=== PATIENT | female | born 1995 | race Two or more races ===

== ENCOUNTER 2019-03-25 13:46 | Emergency (ER) | payer OTHER ==
[~2019-03-25] VITALS: Ht 142.2 cm; Wt 54.4 kg
[2019-03-25 14:24] LABS: BASOPHILS % (AUTO) 0.3 % (0.0-2.0); EOSINOPHILS # (AUTO) 0.1 K/uL (0.0-0.7); EOSINOPHILS % (AUTO) 0.8 % (0.0-7.0); HEMATOCRIT 37.3 % (31.2-41.9); HEMOGLOBIN 12.1 g/dL (10.9-14.3); LYMPHOCYTES % (AUTO) 39.1 % (20.5-51.5); MEAN CORPUSCULAR HEMOGLOBIN 27.3 uug (24.7-32.8); MEAN CORPUSCULAR HGB CONC 32 g/dL (32.3-35.6); MEAN CORPUSCULAR VOLUME 84.7 fL (75.5-95.3); MONOCYTES # (AUTO) 0.9 K/uL (2.0-10.0); MONOCYTES % (AUTO) 8.4 % (0.0-11.0); NEUTROPHILS # (AUTO) 5.2 K/uL (1.8-8.9); NEUTROPHILS % (AUTO) 51.4 % (38.5-71.5); PLATELET COUNT (AUTO) 349 K/uL (179-408); RED BLOOD CELL COUNT(AUTO) 4.41 MIL/uL (3.63-4.92); WHITE BLOOD COUNT (AUTO) 10.2 K/uL (3.8-11.8)
[2019-03-25 14:37] LABS: CREATININE 0.8 mg/dL (0.6-1.3); POTASSIUM 2.9 mmol/L (3.5-5.1)
[2019-03-25 14:48] LABS: BILIRUBIN,DIRECT 0.1 mg/dL (0.0-0.2); BILIRUBIN,TOTAL 0.3 mg/dL (0.2-1.0); TOTAL PROTEIN, SERUM 7.6 g/dL (6.4-8.2)
[2019-03-25 14:50] LABS: THYROID STIMULATING HORMONE 0.846 mIU/mL (0.358-3.740)
[2019-03-25] MEDS ORDERED: IOHEXOL 350 100 ML INFUS..BTL ONE (15:59)
[2019-03-25] MEDS ORDERED: SWABABLE VALVE TRANSFER SET EA MC ONE (15:59)
[2019-03-25] MEDS ORDERED: IV NORMAL SALINE 250 ML IV ONE (15:59)
--- NOTE | 2019-03-25 16:41 | NUR ---
er talking to dr. lua over the phone for cardiology consult
--- NOTE | 2019-03-25 16:50 | NUR ---
pt mother at bedside talking to er md.
[2019-03-25] MEDS ORDERED: POTASSIUM CHLORIDE 20 MEQ TAB.PRT.SR ONE (16:56)
[2019-03-25] MEDS ORDERED: IV NORMAL SALINE 1000 ML BAG IV ONE ×3 (17:00→18:45)
[2019-03-25] MEDS ORDERED: POTASSIUM CHLORIDE 20 MEQ TAB.PRT.SR PO ONE (17:00)
[2019-03-25 17:47] LABS: *URINE HCG, QUAL NEGATIVE (NEGATIVE)
[2019-03-25 17:59] LABS: *AMPHETAMINE, URINE NEGATIVE (NEGATIVE); *BARBITURATE, URINE NEGATIVE (NEGATIVE); *CANNABINOID, URINE NEGATIVE (NEGATIVE); *COCCAINE, URINE NEGATIVE (NEGATIVE); *OPIATE, URINE NEGATIVE (NEGATIVE); *PHENCYCLIDINE SCREEN,URINE NEGATIVE (NEGATIVE)
[2019-03-25] MEDS ORDERED: ONDANSETRON 4 MG/2 ML VIAL IV ONE (18:30)
--- NOTE | 2019-03-25 18:30 | NUR ---
asked pt if she is nervous and she said that she is. notified.
[2019-03-25] MEDS ORDERED: ONDANSETRON 4 MG/2 ML VIAL ONE (18:44)
[2019-03-25] MEDS ORDERED: LORAZEPAM 2 MG/1 ML VIAL ONE (18:55)
[2019-03-25] MEDS ORDERED: LORAZEPAM 2 MG/1 ML VIAL IV ONE (19:00)
--- NOTE | 2019-03-25 19:00 | NUR ---
HAND OFF AND SBAR RECEIVED FROM OUTGOING DAY SHIFT RN PT IS NAD, HR AT 128 RR 18 ABLE TO AMBULATE AND VOID FREELY Addendum: 03/25/19 at 2014 by GUERA IVF INFUSING TO LEFT AC, G20 STARTED BY DAY SHIFT RN PRIOR TO NIGHT RN SHIFT
--- NOTE | 2019-03-25 20:10 | NUR ---
PT IS ASLEEP BUT EASILY ROUSABLE NAD HR AT 106BPM SIDERAILSX2 UP, BED AT LOWEST POSITION
--- NOTE | 2019-03-25 20:13 | NUR ---
IVF INFUSED WELL TO LEFT AC G20 PT IS ASLEEP BUT EASILY ROUSABLE NAD HR AT 106BPM SIDERAILSX2 UP, BED AT LOWEST POSITION
[2019-03-25] MEDS ORDERED: LABETALOL HCL 100 MG/20 ML VIAL IV ONE (20:30)
[2019-03-25] MEDS ORDERED: LABETALOL HCL 100 MG/20 ML VIAL ONE (20:33)
--- NOTE | 2019-03-25 21:02 | NUR ---
pt ambulatory and able to void freely
--- NOTE | 2019-03-25 21:10 | NUR ---
Patient discharged to home in stable conditon. Written and verbal after care instructions given. Patient verbalizes understanding of instructions. DC IV SALINE LOCK FROM L AC, DRESSED PT AMBULATORY W/ STABLE GAIT ALL BELONGINGS W/ PT INSTRUCTED NOT TO DRIVE, VERBALIZED UNDERSTANDING
[2019-03-25 21:44] VITALS: BP 116/70
== END 2019-03-25 21:10 | disposition home or self-care (01) ==
LOC: ER 13:46
DX: R00.0 Tachycardia, unspecified (principal); E86.0 Dehydration
CPT/HCPCS: 36415; 71045; 71275; 80048; 80076; 80307; 83880; 84439; 84443; 84484; 84702; 84703; 85025; 85379; 85730; 93005; 96361; 96374; 96375; 99284; J2060; J2405; J3490; Q9967; 70030-TC; A4663; J7030; J7050